=== PATIENT | male | born 1955 | race Caucasian/White ===

== ENCOUNTER 2023-08-06 17:19 | Emergency (ER) | payer MEDICARE, SELFPAY ==
[2023-08-06] VITALS (42 sets, daily range): BP systolic 151–158; BP diastolic 88–92; PULSE 59–92; RESP 2–27; TEMP 36.5; O2SAT 78–100; BMI 33.5
--- NOTE | 2023-08-06 17:29 | CT_ITS ---
The [address] [address] Patient Name: VINCE FRANKLIN MRN: [id number] date: 1955 Sex: M Assigned Patient Location: ER Current Patient Location: ER Accession/Order Number: [id number] Exam Date: 08/06/2023 18:11 Report Date: 08/06/2023 20:03 At the request of: BELLO CULLEN Procedure: CT abdomen pelvis wo con EXAMINATION: CT abdomen pelvis wo con, 08/06/2023 6:11 PM EST HISTORY: Left sided abdominal pain COMPARISON: MR abdomen 08/07/2018, CT abdomen and pelvis from outside hospital 06/17/2018.. TECHNIQUE: CT scan of the abdomen and pelvis was performed without IV contrast. CT dose reduction technique was used, including Automated Exposure Control. FINDINGS: LOWER CHEST: There is moderate atherosclerotic right coronary artery calcification. LIVER: Moderate intrahepatic biliary ductal dilatation. This is not seen previously. GALLBLADDER AND BILIARY SYSTEM: The gallbladder is mildly distended with mild cholelithiasis. There is moderate dilatation of the common duct measuring up to 13 mm. The duct tapers distally with no definite stones identified. SPLEEN: Normal. PANCREAS: The pancreatic body and tail appear somewhat atrophic and there is mild ductal dilatation measuring 5 mm which is not seen previously. There is mild peripancreatic stranding suspicious for acute pancreatitis. There is a hypodense mass in the head of the pancreas on image 64 series 3 measuring 18 x 15 mm which appears cystic in nature and previously this measured 11 x 9 mm. ADRENAL GLANDS: Normal. KIDNEYS AND URETERS: Kidneys appear moderately to severely atrophic bilaterally with perinephric stranding consistent with medical renal disease. There is prominence of the renal sinus fat consistent with renal sinus lipomatosis. There is a 3 cm hyperdense exophytic mass off the lower pole of right kidney which previously measured 14 mm. There is a 2.6 cm cyst in the upper pole of the right kidney which previously measured 2.4 cm with some internal hyperdense foci including a nodular focus measuring 6 mm. There is a 15 mm hyperdensity in the upper pole of the left kidney which is not seen previously. There is a 16 mm hyperdensity in the medial left kidney, previously 10 mm. There is a small left lower pole renal cyst and there is an adjacent 7 mm indeterminate hyperdense focus. There is bilateral perinephric stranding consistent with medical renal disease. VASCULATURE: There is diffuse atherosclerotic calcification. RETROPERITONEUM AND LYMPH NODES: Normal, with no lymphadenopathy. GASTROINTESTINAL TRACT/MESENTERY: Normal appearance of the stomach, small and large bowel. Normal mesentery/peritoneum. The appendix is not visualized. BLADDER: Mild wall thickening which is likely due to underdistention. REPRODUCTIVE SYSTEM: Normal prostate. BODY WALL: Small fat-containing supraumbilical ventral hernia which is not seen previously. BONES: Remote healed fracture of the right ninth posterior rib. Prominent anterior osteophytes in the lower thoracic spine consistent with DISH. CT/CT abdomen pelvis wo con IMPRESSION: 1. Interval development of moderate intrahepatic and extrahepatic biliary ductal dilatation as well as pancreatic ductal dilatation and pancreatic atrophy. This is potentially due to an enlarging cystic mass in the head of the pancreas measuring 1.5 x 1.8 cm suspicious for neoplasm. Further evaluation is recommended with MRI/MRCP. 2. Peripancreatic fat stranding is also noted suspicious for acute pancreatitis. 3. Multiple indeterminate hyperdense renal masses which may be due to hemorrhagic/proteinaceous cysts but solid masses cannot be excluded. The largest of these measures 3 cm in the lower pole of the right kidney and previously this measured 1.4 cm. Recommend follow-up renal mass protocol MRI or CT. 4. Gallbladder somewhat distended and there is mild cholelithiasis. 5. 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 6. Small fat-containing supraumbilical ventral hernia. Electronically authenticated by: BRITTON LE Date: 08/06/2023 20:03
[2023-08-06 17:51] LABS: Basophils Percent Auto 0.5 % (0.2-2.0); Eosinophils Absolute Auto 0.3 10^3/uL (0.0-0.7); Eosinophils Percent Auto 3.7 % (0.9-7.0); Hematocrit 40.1 % (42.0-54.0); Hemoglobin 13.6 g/dL (14.0-18.0); Immature Granulocytes Abs Auto 0.03 10^3/uL (0.00-0.03); Immature Granulocytes Pct Auto 0.3 % (0.0-0.5); Lymphocytes Absolute Auto 1.8 10^3/uL (1.2-3.8); Lymphocytes Percent Auto 21.2 % (20.5-60.0); Mean Corpuscular HGB Conc 33.9 g/dL (29.9-35.2); Mean Corpuscular Hemoglobin 31.5 pg (25.9-34.0); Mean Corpuscular Volume 92.8 fL (80.0-94.0); Mean Platelet Volume 8.8 fL (9.5-13.5); Monocytes Absolute Auto 0.6 10^3/uL (0.3-0.8); Monocytes Percent Auto 7.1 % (1.7-12.0); Neutrophils Absolute Auto 5.8 10^3/uL (1.4-6.5); Neutrophils Percent Auto 67.2 % (43.0-75.0); Platelet Count 234 10^3/uL (150-450); Red Blood Count 4.32 10^6/uL (4.70-6.10); Red Cell Distribution Width 15.9 % (11.0-15.0); White Blood Count 8.7 10^3/uL (4.0-11.0)
--- NOTE | 2023-08-06 17:52 | ED_ITS ---
HPI - Abdominal Pain General Chief Complaint: Abdominal Pain Stated Complaint: LT FLANK PAIN/ WEAKNESS Time Seen by Provider: 08/06/23 17:28 Source: patient Mode of arrival: Wheelchair Limitations: no limitations History of Present Illness HPI narrative: Patient is a 68-year-old male with a history of end-stage renal disease on dialysis as well as coronary artery disease who presents to the ER for a 1 month history of pain to the left upper abdomen. He states today the pain became worse. He has had nausea but no vomiting, no difficulty with bowel movements. He does produce urine and has not had urinary symptoms. He completed dialysis today. He has a large surgical incision over the abdomen, he states he was in process to receive peritoneal dialysis but the surgery was unsuccessful. He is not sure if he still has a gallbladder, he believes he does not have an appendix. He has not been seen for the symptoms previously. Related Data Home Medications Medication Instructions Recorded Confirmed albuterol sulfate 90 mcg/actuation 2 inh inhalation Q6H PRN shortness 08/06/23 08/06/23 aerosol inhaler (ProAir HFA) of breath or wheezing allopurinol 300 mg tablet 300 mg PO DAILY 08/06/23 08/06/23 apixaban 5 mg tablet (Eliquis) 5 mg PO Q12H 08/06/23 08/06/23 atorvastatin 80 mg tablet 80 mg PO DAILY 08/06/23 08/06/23 carvedilol 6.25 mg tablet 6.25 mg PO Q12H 08/06/23 08/06/23 cholecalciferol (vitamin D3) 50 50 mcg PO DAILY 08/06/23 08/06/23 mcg (2,000 unit) capsule ferric citrate 210 mg iron tablet 210 mg PO TID 08/06/23 08/06/23 (Auryxia) furosemide 80 mg tablet 80 mg PO DAILY 08/06/23 08/06/23 isosorbide mononitrate 60 mg 60 mg PO DAILY 08/06/23 08/06/23 tablet,extended release 24 hr levothyroxine 137 mcg tablet 137 mcg PO DAILY 08/06/23 08/06/23 niacin 1,000 mg tablet,extended 1,000 mg PO DAILY 08/06/23 08/06/23 release nifedipine 60 mg tablet,extended 60 mg PO BID 08/06/23 08/06/23 release 24 hr nitroglycerin 0.4 mg sublingual 0.4 mg sublingual Q5M 08/06/23 08/06/23 tablet omeprazole 20 mg capsule,delayed 20 mg PO BID 08/06/23 08/06/23 release potassium 99 mg tablet 99 mg PO DAILY 08/06/23 08/06/23 sitagliptin phosphate 25 mg tablet 25 mg PO DAILY 08/06/23 08/06/23 (Januvia) sodium bicarbonate 650 mg tablet 650 mg PO BID 08/06/23 08/06/23 vitamin B complex 1 cap PO Q24H 08/06/23 08/06/23 Allergies Allergy/AdvReac Type Severity Reaction Status Date / Time clopidogrel [From Plavix] Allergy Severe Verified 08/06/23 17:28 celecoxib [From Celebrex] Allergy Unknown Verified 08/06/23 17:28 adhesive tape AdvReac Severe Verified 08/06/23 17:28 Review of Systems ROS Constitutional Denies: fever or chills Ears, nose, mouth, and throat Denies: throat pain or nasal congestion Cardiovascular Denies: chest pain Respiratory Denies: shortness of breath Gastrointestinal Reports: abdominal pain and nausea; Denies: vomiting or diarrhea Genitourinary Denies: painful urination Musculoskeletal Denies: back pain Integumentary/Breast Denies: rash Neurological Denies: headache Hematologic/Lymphatic Denies: easy bruising PFSH PFSH Social History Smoking status: Never smoker Exam Narrative Exam Narrative: Gen.: Awake, alert, in no distress Head: Normocephalic, atraumatic ENT: Moist mucous membranes Respiratory: No respiratory distress, lungs clear bilaterally Cardio: Regular rate and rhythm Gastrointestinal: Abdomen is soft, nondistended and mildly tender in the left upper quadrant with no guarding or rebound, well-healed surgical incision over the anterior abdomen Extremities: Moves extremities equally Psych: Normal mood and affect Neuro: No focal neuro deficit Skin: Warm, dry, intact Constitutional Vital Signs, click to edit/add: Last Vital Signs Temp 97.7 F 08/06/23 17:22 Pulse 60 08/06/23 23:20 Resp 16 08/07/23 00:06 BP 150/85 H 08/07/23 00:00 Pulse Ox 98 08/07/23 00:00 O2 Del Method Simple Mask 08/06/23 21:17 O2 Flow Rate 4 08/06/23 21:17 Course Vital Signs Vital signs: Vital Signs Temperature 97.7 F 08/06/23 17:22 Pulse Rate 77 08/06/23 17:22 Respiratory Rate 24 08/06/23 17:22 Blood Pressure 158/92 H 08/06/23 17:22 Pulse Oximetry 97 08/06/23 17:22 Oxygen Delivery Method Room Air 08/06/23 17:22 Temperature 97.7 F 08/06/23 17:22 Pulse Rate 60 08/06/23 23:20 Respiratory Rate 16 08/07/23 00:06 Blood Pressure 150/85 H 08/07/23 00:00 Pulse Oximetry 98 08/07/23 00:00 Oxygen Delivery Method Simple Mask 08/06/23 21:17 Oxygen Delivery Flow Rate 4 08/06/23 21:17 MDM - Abdominal Pain MDM Narrative Medical decision making narrative: Treated with IV fluids, Levsin, Zofran with improvement. He did fall asleep in the ER and was noted to have significant oxygen desaturation with sleeping, he was placed on oxygen for history of sleep apnea. His lab studies show significantly elevated LFTs and elevated lipase consistent with acute pancreatitis. He has normal bilirubin and no evidence of jaundice on exam. CT of the abdomen and pelvis without contrast was performed as the patient has a history of renal disease, this shows the patient has a small mass on the pancreas suspicious for neoplasm as well as inflammatory changes of the pancreas consistent with acute pancreatitis. These results were discussed with the patient and his at bedside by attending physician. They relate that the patient does have a history of unspecified mass on the pancreas and testing did not show cancer although they are not sure where they had the testing done or what the exact results were. Patient was given gentle IV fluids in the ER, he and his request transfer to [facility], they are on an extended wait time and will not have a bed over the next day. I made the patient and his aware of this and they prefer to try [facility] in [place]. I discussed the case with Kait Keita, nurse practitioner who is the accepting provider for the hospitalist, Dr. Santana. Patient is excepted to their facility. Stable at time of transfer. Morphine was given for pain. Medical Records Attestation: I reviewed the patient's medical records. Lab Data Attestation: I reviewed the patient's lab results. Labs: Lab Results 08/06/23 Range/Units 17:45 WBC 8.7 (4.0-11.0) 10^3/uL RBC 4.32 L (4.70-6.10) 10^6/uL Hgb 13.6 L (14.0-18.0) g/dL Hct 40.1 L (42.0-54.0) % MCV 92.8 (80.0-94.0) fL MCH 31.5 (25.9-34.0) pg MCHC 33.9 (29.9-35.2) g/dL RDW 15.9 H (11.0-15.0) % Plt Count 234 (150-450) 10^3/uL MPV 8.8 L (9.5-13.5) fL Neut % (Auto) 67.2 (43.0-75.0) % Lymph % (Auto) 21.2 (20.5-60.0) % [place] % (Auto) 7.1 (1.7-12.0) % Eos % (Auto) 3.7 (0.9-7.0) % Baso % (Auto) 0.5 (0.2-2.0) % Neut # (Auto) 5.8 (1.4-6.5) 10^3/uL Lymph # (Auto) 1.8 (1.2-3.8) 10^3/uL [place] # (Auto) 0.6 (0.3-0.8) 10^3/uL Eos # (Auto) 0.3 (0.0-0.7) 10^3/uL Baso # (Auto) 0.0 (0.0-0.1) 10^3/uL Abs Immat Gran (auto) 0.03 (0.00-0.03) 10^3/uL Imm/Tot Granulo (auto) 0.3 (0.0-0.5) % Sodium 133 L (136-145) mmol/L Potassium 3.0 L (3.5-5.1) mmol/L Chloride 93 L (98-107) mmol/L Carbon Dioxide 29.4 (21.0-32.0) mmol/L Anion Gap 13.6 BUN 12.0 (7.0-18.0) mg/dL Creatinine 3.52 H (0.70-1.30) mg/dL Est GFR ( Amer) 21 L (>=60) Est GFR (Non-Af Amer) 17 L (>=60) BUN/Creatinine Ratio 3.4 Glucose 204 H (74-106) mg/dL Lactate 2.1 H (0.4-2.0) mmol/L Calcium 9.9 (8.5-10.1) mg/dL Total Bilirubin 0.8 (0.2-1.0) mg/dL AST 269 H (15-37) U/L ALT 159 H (16-63) U/L Alkaline Phosphatase 367 H (46-116) U/L Total Protein 7.8 (6.4-8.2) g/dL Albumin 3.2 L (3.4-5.0) g/dL Globulin 4.6 g/dL Albumin/Globulin Ratio 0.7 Lipase 749.0 H (16.0-77.0) U/L Imaging Data CT scan - abdomen: Attestation: I have reviewed the pertinent imaging results. Radiologist's impression: Procedure: CT abdomen pelvis wo con EXAMINATION: CT abdomen pelvis wo con, 08/06/2023 6:11 PM EST HISTORY: Left sided abdominal pain COMPARISON: MR abdomen 08/07/2018, CT abdomen and pelvis from outside hospital 06/17/2018.. TECHNIQUE: CT scan of the abdomen and pelvis was performed without IV contrast. CT dose reduction technique was used, including Automated Exposure Control. FINDINGS: LOWER CHEST: There is moderate atherosclerotic right coronary artery calcification. LIVER: Moderate intrahepatic biliary ductal dilatation. This is not seen previously. GALLBLADDER AND BILIARY SYSTEM: The gallbladder is mildly distended with mild cholelithiasis. There is moderate dilatation of the common duct measuring up to 13 mm. The duct tapers distally with no definite stones identified. SPLEEN: Normal. PANCREAS: The pancreatic body and tail appear somewhat atrophic and there is mild ductal dilatation measuring 5 mm which is not seen previously. There is mild peripancreatic stranding suspicious for acute pancreatitis. There is a hypodense mass in the head of the pancreas on image 64 series 3 measuring 18 x 15 mm which appears cystic in nature and previously this measured 11 x 9 mm. ADRENAL GLANDS: Normal. KIDNEYS AND URETERS: Kidneys appear moderately to severely atrophic bilaterally with perinephric stranding consistent with medical renal disease. There is prominence of the renal sinus fat consistent with renal sinus lipomatosis. There is a 3 cm hyperdense exophytic mass off the lower pole of right kidney which previously measured 14 mm. There is a 2.6 cm cyst in the upper pole of the right kidney which previously measured 2.4 cm with some internal hyperdense foci including a nodular focus measuring 6 mm. There is a 15 mm hyperdensity in the upper pole of the left kidney which is not seen previously. There is a 16 mm hyperdensity in the medial left kidney, previously 10 mm. There is a small left lower pole renal cyst and there is an adjacent 7 mm indeterminate hyperdense focus. There is bilateral perinephric stranding consistent with medical renal disease. VASCULATURE: There is diffuse atherosclerotic calcification. RETROPERITONEUM AND LYMPH NODES: Normal, with no lymphadenopathy. GASTROINTESTINAL TRACT/MESENTERY: Normal appearance of the stomach, small and large bowel. Normal mesentery/peritoneum. The appendix is not visualized. BLADDER: Mild wall thickening which is likely due to underdistention. REPRODUCTIVE SYSTEM: Normal prostate. BODY WALL: Small fat-containing supraumbilical ventral hernia which is not seen previously. BONES: Remote healed fracture of the right ninth posterior rib. Prominent anterior osteophytes in the lower thoracic spine consistent with DISH. IMPRESSION: 1. Interval development of moderate intrahepatic and extrahepatic biliary ductal dilatation as well as pancreatic ductal dilatation and pancreatic atrophy. This is potentially due to an enlarging cystic mass in the head of the pancreas measuring 1.5 x 1.8 cm suspicious for neoplasm. Further evaluation is recommended with MRI/MRCP. 2. Peripancreatic fat stranding is also noted suspicious for acute pancreatitis. 3. Multiple indeterminate hyperdense renal masses which may be due to hemorrhagic/proteinaceous cysts but solid masses cannot be excluded. The largest of these measures 3 cm in the lower pole of the right kidney and previously this measured 1.4 cm. Recommend follow-up renal mass protocol MRI or CT. 4. Gallbladder somewhat distended and there is mild cholelithiasis. 5. 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 6. Small fat-containing supraumbilical ventral hernia. Electronically authenticated by: BRITTON LE Date: 08/06/2023 20:03 ECG Data Attestation: I personally reviewed and interpreted this ECG as follows: (Normal sinus rhythm at a rate of 74, left anterior fascicular block with occasional PVC, no acute ST elevation. EKG reviewed by attending physician) Discharge Plan Discharge Chief Complaint: Abdominal Pain Clinical Impression: Acute pancreatitis, Abdominal pain, Pancreatic mass, End stage renal disease on dialysis Patient Disposition: [facility] Time of Disposition Decision: 20:26 Discharge Location: [facility] Discharge Date/Time: 08/07/23 00:50
[2023-08-06 18:08] LABS: Lactate/Lactic Acid 2.1 mmol/L (0.4-2.0)
[2023-08-06 18:12] LABS: Alanine Aminotransferase 159 U/L (16-63); Albumin Globulin Ratio 0.7; Albumin Level 3.2 g/dL (3.4-5.0); Alkaline Phosphatase 367 U/L (46-116); Anion Gap 13.6; Aspartate Amino Transferase 269 U/L (15-37); BUN Creatinine Ratio 3.4; Bilirubin Total 0.8 mg/dL (0.2-1.0); Calcium 9.9 mg/dL (8.5-10.1); Carbon Dioxide 29.4 mmol/L (21.0-32.0); Chloride 93 mmol/L (98-107); Estimated GFR (African America 21 (>=60); Estimated GFR (Non-African Ame 17 (>=60); Globulin 4.6 g/dL; Glucose 204 mg/dL (74-106); Sodium 133 mmol/L (136-145); Total Protein 7.8 g/dL (6.4-8.2)
[2023-08-06] MEDS: FAMOTIDINE/PF 20 MG/2 ML VIAL IV (18:18)
[2023-08-06] MEDS: HYOSCYAMINE SULFATE 0.125 MG TAB.SUBL SL (18:18)
[2023-08-06] MEDS: ONDANSETRON PF 4 MG/2 ML VIAL IV (18:18)
[2023-08-06] MEDS: 0.9 % SODIUM CHLORIDE 1,000 ML 250 ML IV (18:47)
--- NOTE | 2023-08-06 18:50 | PC.NURSE ---
PT STATES HIS PAIN IS MUCH BETTER AT THIS TIME
--- NOTE | 2023-08-06 19:49 | PC.NURSE ---
patient switched from 3.5 liters nasal canula to 4L simple mask due to decreased oxygen saturation while sleeping. patients states patient wears mask at night.
--- NOTE | 2023-08-06 20:05 | ECG_ITS ---
The [facility] Test Date: 2023-08-06 Pat Name: VINCE FRANKLIN Department: Room: - Gender: Male Medical Office Technologist: : 1955 Requested By: DENISE ALEXIS Order Number: [id number] Reading MD: SERENITY GUERRERO Measurements Intervals [place] Rate: 74 P: 90 TX: 204 QRS: -68 QRSD: 106 T: 124 QT: 404 QTc: 431 Interpretive Statements 1100 Sinus rhythm 54317 Cannot rule out atrial flutter 1570 with occasional ventricular premature complexes 2630 Left anterior fascicular block 3114 Cannot rule out anterior myocardial infarction, age undetermined 9150 abnormal ECG No previous ECG available for comparison Electronically Signed On 08-07-2023 7:09:22 EST by SERENITY GUERRERO
--- NOTE | 2023-08-06 20:30 | PC.NURSE ---
Patient taken off of oxygen at this time. He is sitting up and awake. He does not wear oxygen at home while awake, only uses CPAP at night. Patient is wearing Pulse Ox monitor.
[2023-08-06] MEDS: MORPHINE SULFATE 4 MG/ML VIAL IV (21:01)
[2023-08-07] VITALS: BP 150/85; O2SAT 98
[2023-08-07 00:06] VITALS: RESP 16
== END 2023-08-07 00:50 | disposition short-term general hospital (02) ==
PROVIDERS: Physician Assistant; Emergency Provider Emergency Medicine; PCP Family Medicine
DX: K85.90 Acute pancreatitis without necrosis or infection, unspecified (principal); N18.6 End stage renal disease; K86.9 Disease of pancreas, unspecified; R10.12 Left upper quadrant pain; Z99.2 Dependence on renal dialysis; I25.10 Atherosclerotic heart disease of native coronary artery without angina pectoris; Z79.899 Other long term (current) drug therapy; G47.30 Sleep apnea, unspecified
CPT/HCPCS: 36415; 74176; 80053; 83605; 83690; 85025; 93005; 96374; 96375; 99285